=== PATIENT | female | born 1965 | race Caucasian/White ===

== ENCOUNTER 2021-02-16 12:57 | Emergency (ER) | payer BC ==
[~2021-02-16] VITALS: Ht 165.1 cm; Wt 71.4 kg
[2021-02-16 18:59] VITALS: BP 136/79
--- NOTE | 2021-02-16 19:27 | REP ---
INDICATION: right posterior knee and calf pain COMPARISON: None. TECHNIQUE: Real time compression and duplex Doppler interrogation of the right lower extremity deep venous system is performed, including the left common femoral vein.Compression of the right peroneal and posterior tibial veins is performed. FINDINGS: The right common femoral, superficial femoral and popliteal veins are fully compressible with transducer pressure and demonstrate normal spontaneous and phasic flow, without evidence of deep venous thrombosis.The left common femoral vein demonstrates no thrombus.The visualized right peroneal and posterior tibial veins demonstrate no thrombus. There is a complex right popliteal cyst measuring 5.6 x 1.2 x 3.7 cm. IMPRESSION: No evidence of deep venous thrombosis of the right lower extremity femoral popliteal venous system.The visualized right peroneal and posterior tibial veins demonstrate no thrombus. There is a complex right popliteal cyst measuring 5.6 x 1.2 x 3.7 cm. <Electronically signed by Magdaleno Harley > 02/16/21 1921
--- NOTE | 2021-02-16 19:27 | REP ---
INDICATION: pain swelling posteriorly extending into calf COMPARISON: None. TECHNIQUE: Five views right knee. FINDINGS: There is no evidence of acute fracture, dislocation, or intrinsic bone disease.There is a mild to moderate suprapatellar effusion. IMPRESSION: No fracture or dislocation. Mild to moderate suprapatellar effusion. <Electronically signed by Magdaleno Harley > 02/16/21 1658
[2021-02-16] MEDS ORDERED: CEPH25SS PO (19:50)
[2021-02-16] MEDS ORDERED: CEPH500C PO (19:59)
[2021-02-17] MEDS ORDERED: CEPH500C PO (00:14)
== END 2021-02-16 20:20 | disposition home or self-care (01) ==
LOC: M ED 12:57
DX: M25.461 Effusion, right knee (principal); M71.21 Synovial cyst of popliteal space [Baker], right knee; N39.0 Urinary tract infection, site not specified; M06.9 Rheumatoid arthritis, unspecified; Z79.899 Other long term (current) drug therapy; Z88.1 Allergy status to other antibiotic agents; Z88.2 Allergy status to sulfonamides; Z91.038 Other insect allergy status